=== PATIENT | male | born 1960 | race African-American/Black ===

== ENCOUNTER 2019-03-23 06:48 | Outpatient (CLI) | payer OTHER ==
--- NOTE | 2019-03-23 08:04 | ULT ---
Exam: Bilateral renal ultrasound complete: HISTORY: Urethral stricture, renal insufficiency COMPARISON: None FINDINGS: Right kidney: 10.1 x 4.8 x 5.0 cm Left kidney: 10.8 x 5.8 x 5.9 cm No renal hydronephrosis. No evidence for abnormal perinephric process. No solid or cystic renal mass. Unremarkable appearing bladder. IMPRESSION: Unremarkable bilateral renal ultrasound. No hydronephrosis or perinephric process.
== END 2019-03-23 06:49 | disposition home or self-care (01) ==
LOC: BICULT 06:48
PROVIDERS: ATTEND Urology
DX: N35.819 Other urethral stricture, male, unspecified site (principal); N28.9 Disorder of kidney and ureter, unspecified
CPT/HCPCS: 76770

== ENCOUNTER 2019-06-27 20:35 | Emergency (ER) | payer OTHER ==
--- NOTE | 2019-06-27 21:03 | RAD ---
EXAM: Right hand 3 views: HISTORY: Right hand swelling without known injury COMPARISON: 10/24/2004 FINDINGS: Multilevel arthrosis changes of the wrist and hand Degenerative changes. No acute fracture or dislocation or other significant acute osseous abnormality. IMPRESSION: No significant acute process.
[2019-06-27] MEDS ORDERED: Ketorolac Tromethamine 30 MG/ML VIAL ONE (21:19)
== END 2019-06-27 21:55 | disposition home or self-care (01) ==
LOC: ERS 20:35
DX: M25.531 Pain in right wrist (principal); I10 Essential (primary) hypertension
CPT/HCPCS: 96372; J1885

== ENCOUNTER 2019-11-05 18:04 | Emergency (ER) | payer OTHER ==
--- NOTE | 2019-11-05 18:34 | RAD ---
RIGHT HAND THREE VIEWS: 11/05/19 HISTORY: Right hand pain. FINDINGS/IMPRESSION: Comparison made with exam of 06/27/19. Degenerative changes are again seen. No acute fracture or disl ocation or bony destruction identified. POS: OFF
== END 2019-11-05 20:30 | disposition home or self-care (01) ==
LOC: ERS 18:04
DX: M10.9 Gout, unspecified (principal); I10 Essential (primary) hypertension
CPT/HCPCS: 36415; 84550

== ENCOUNTER 2020-03-15 16:45 | Emergency (ER) | payer OTHER ==
[2020-03-15] MEDS ORDERED: Ketorolac Tromethamine 30 MG/ML VIAL ONE (17:04)
--- NOTE | 2020-03-15 17:26 | RAD ---
Exam:3 views right shoulder. HISTORY: Hurt shoulder at work. COMPARISON: None FINDINGS: Glenohumeral joint spaces preserved. Mild degenerative change in the acromioclavicular join t space. No fracture or dislocation. Visualized right lung and right ribs are intact. IMPRESSION: No fracture or dislocation.
== END 2020-03-15 17:54 | disposition home or self-care (01) ==
LOC: ERS 16:45
DX: S43.401A Unspecified sprain of right shoulder joint, initial encounter (principal); I10 Essential (primary) hypertension; Z79.899 Other long term (current) drug therapy; W23.0XXA Caught, crushed, jammed, or pinched between moving objects, initial encounter
CPT/HCPCS: 96372; J1885

== ENCOUNTER 2020-05-12 07:44 | Outpatient (CLI) | payer OTHER ==
--- NOTE | 2020-05-12 09:28 | MRI ---
MRI RIGHT SHOULDER PERFORMED WITHOUT CONTRAST ENHANCEMENT: Date: 05/12/2020 HISTORY: Right shoulder strain. FINDINGS: Moderate arthrosis of the AC joint. There is a full thickness partial width supraspinatus tendon tear. The full thickness component of th is tear is retracted by approximately 1.5 cm. There are still some thin anterior and posterior fibers of the supraspinatus tendon that are intact. Tear does appear to extend to involve a portion of the anterior fibers of the infraspinatus tendon. The AP dimension of this tear is estimated at approximat stefano 1.4 cm. The subscapularis muscle and tendon appear intact. There is motion artifact which degrades detail. Th e biceps tendon does appear to be in normal position within the bicipital groove. Bicipital labral complex and inferior glenohumeral ligamentous and labral complex appear intact. There is very mild atrophy of the supraspinatus muscle. IMPRESSION: Full thickness partial width supraspinatus tendon tear as discussed above. POS: EDILBERTO
== END 2020-05-12 07:45 | disposition home or self-care (01) ==
LOC: TBSIIMAG 07:44
PROVIDERS: ATTEND Family Medicine
DX: S46.911D Strain of unspecified muscle, fascia and tendon at shoulder and upper arm level, right arm, subsequent encounter (principal); M75.121 Complete rotator cuff tear or rupture of right shoulder, not specified as traumatic

== ENCOUNTER 2020-08-17 09:25 | Outpatient (CLI) | payer OTHER | END 2020-08-17 09:26 | disposition home or self-care (01) | LOC: CTENTCT 09:25 | PROVIDERS: ATTEND Specialist | DX: J32.8 Other chronic sinusitis (principal) | CPT/HCPCS: 70486 ==

== ENCOUNTER 2020-09-28 10:03 | Emergency (ER) | payer OTHER ==
[2020-09-28] MEDS ORDERED: Dexamethasone 10 MG/ML VIAL ONE (11:06)
== END 2020-09-28 11:45 | disposition home or self-care (01) ==
LOC: ERS 10:03
DX: M10.9 Gout, unspecified (principal); I10 Essential (primary) hypertension; Z79.899 Other long term (current) drug therapy
CPT/HCPCS: 96372; 99283; J1100

== ENCOUNTER 2020-11-16 08:09 | Day surgery (SDC) | payer OTHER ==
[2020-11-15 11:34] VITALS: BMI 35.6
[2020-11-16] MEDS ORDERED: Levofloxacin 500 mg/D5W 100 ml Premix Bag ONE (08:47)
[2020-11-16] MEDS ORDERED: Ondansetron PF 4 MG/2 ML Vial ONE (09:35)
[2020-11-16] MEDS ORDERED: Dexamethasone 20 MG/5 ML VIAL ONE (09:35)
[2020-11-16] MEDS ORDERED: ePHEDrine 50 MG/ML VIAL ONE (09:35)
[2020-11-16] MEDS ORDERED: Glycopyrrolate 0.2 MG/ML 5 ML SYRINGE ONE (09:35)
[2020-11-16] MEDS ORDERED: PROPOFOL 200 MG/20 ML VIAL ONE (09:35)
[2020-11-16] MEDS ORDERED: Lidocaine 1% PF 5 ML VIAL ONE (09:35)
[2020-11-16] MEDS ORDERED: Iothalamate Meglumine 60% 50 ML VIAL FS ONE (11:05)
[2020-11-16] MEDS ORDERED: Fentanyl 100 MCG/2 ML VIAL ONE ×2 (11:10→12:31)
[2020-11-16] MEDS ORDERED: Phenazopyridine HCl 100 MG TAB ONE (12:30)
[2020-11-16] MEDS ORDERED: Oxybutynin 5 MG TAB ONE (12:31)
--- NOTE | 2020-11-16 13:16 | OP ---
DATE OF PROCEDURE: 11/16/2020 PREOPERATIVE DIAGNOSES: 1. A 60-year-old male with history of urethral stricture. 2. Meatal stenosis. 3. urinary tract infection. 4. Hydrocele. POSTOPERATIVE DIAGNOSES: 1. A 60-year-old male with history of urethral stricture. 2. Meatal stenosis. 3. urinary tract infection. 4. Hydrocele. PROCEDURES PERFORMED: Meatal calibration dilatation, retrograde urethrogram, cystoscopy, direct vision internal urethrotomy, 18-Malian 10 mL indwelling Chiang catheter, Alturas tip over guidewire. ANESTHESIA: LMA. COMPLICATIONS: None apparent. SPECIMEN: None. INTRAOPERATIVE FINDINGS: 1. Meatal calibration 12-Malian dilated to 26-Malian. 2. Retrograde urethrogram: Demonstrating two discrete areas of proximal penile urethral stricture. 3. Cystoscopy demonstrating proximal penile bulbar urethral stricture caliber about 15 to 16-Malian caliber. 4. Coapting lateral lobes of the prostate, no significant obstructing component from BPH 5. Bladder grossly unremarkable. INDICATIONS FOR THE PROCEDURE AND HISTORY: Mazin is a 60-year-old male with history of urethral stricture, had undergone DVIU in the past. He presented to my office as he had Enterococcus UTI symptomatic. This has been treated and resolved. He was advised regarding restaging cystoscopy, which he had significant anxiety. Therefore, exam under anesthesia advised. I had previously informed him that urethroplasty would be ideal, given his prior history of DVIU, however, continues to decline more definitive treatment. Therefore, restaging retrograde urethrogram, staging cystoscopy advised as he presents with symptomatic Enterococcus UTI. He has had no significant PVR of concern. Risks and complications of procedures have been discussed with him in detail including, but not limited to bleeding, pain, infection, injury to adjacent organs, ureteral injury, he has been fully informed regarding my recommendations of urethroplasty is more definitive treatment, however, declines. All questions answered to his satisfaction and desired to proceed. DESCRIPTION OF PROCEDURE: After an informed consent was signed, the patient was taken to the operating room, placed in a dorsal lithotomy position with the genital area prepped and draped in the usual surgical sterile fashion. A retrograde urethrogram was performed first. Upon the patient placed in a lateral modified position for a rug, his meatus was tight and it appeared to be about 12-Malian caliber and therefore we used a 12-Malian caliber catheter to perform a rugged retrograde urethrogram, which demonstrated two areas of narrowing in the proximal penile urethra. The bladder was easily opacified. The patient was subsequently placed in dorsal lithotomy position. A 17-Malian cystoscope was utilized first. Using Barbie sounds, I calibrated his meatus to about 12-Malian dilated to 26-Malian with ease. Subsequently, a 17-Malian scope was passed with ease. Staging of the urethra demonstrated consistent with a proximal penile urethral stricture. Although the lumen appeared to be not significantly obstructing, there was difficulty passing the 17-Malian scope atraumatically. Therefore, a 0.035 Superstiff wire was placed to the level of the bladder. As a 17-Malian scope would not accommodate a wire, we switched to a 20-Malian scope. With the wire within the bladder, we gently passed the scope to the level of the bladder, passively dilating any stricture. He had coapting lateral lobes of the prostate, however, not significantly obstructing. Bladder was grossly unremarkable. He has no median lobe of concern. At this time with the wire in situ, we re-staged his stricture with a 22-Malian scope. With passage of the scope gently, there was some persistent annular narrowing. Therefore, we performed a direct vision internal urethrotomy, releasing the annular ring. This was very soft in nature. An 18-Malian Alturas tip Chiang catheter was passed over the guidewire and 10 mL insufflated. The wire was then subsequently removed. The catheter attached to leg bag gravity bag. The patient will follow up with me next week for a voiding trial. Antibiotics sent to the patient's pharmacy. Incidentally noted on preop, he did have worsening renal insufficiency. We will perform upper tract imaging with renal ultrasound. 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 Job ID: [id number] [facility]
[2020-11-16] MEDS ORDERED: HYDROcodone/Acetaminophen 5/325 mg Tablet ONE (13:21)
--- NOTE | 2020-11-16 13:26 | RAD ---
Exam: Intraprocedure fluoroscopy for retrograde IVP FINDINGS: 2 fluoroscopic images demonstrate contrast opacifying the urethra. There is a persistent fi lling defect. Contrast does reflux into the bladder. IMPRESSION: Fluoroscopy as above
== END 2020-11-16 13:50 | disposition home or self-care (01) ==
LOC: SDC 08:09
PROVIDERS: ATTEND Urology
PROC: 0TND8ZZ Release Urethra, Via Natural or Artificial Opening Endoscopic (ICD-10-PCS; principal; 2020-11-16)
DX: N35.811 Other urethral stricture, male, meatal (principal); N39.0 Urinary tract infection, site not specified; N40.1 Benign prostatic hyperplasia with lower urinary tract symptoms; R35.0 Frequency of micturition; N43.3 Hydrocele, unspecified; N52.9 Male erectile dysfunction, unspecified; I10 Essential (primary) hypertension; K21.9 Gastro-esophageal reflux disease without esophagitis; M1A.9XX0 Chronic gout, unspecified, without tophus (tophi); Z79.899 Other long term (current) drug therapy
CPT/HCPCS: 74420; J1100; J1956; J2405; J2704; J3010; J3490

== ENCOUNTER 2024-07-26 20:45 | Inpatient (IN) | payer BC, MEDICARE ==
[~2024-07-26 20:45] MED LIST: Iopamidol-370 76% 500 ML MDV (1 ML CHARGE) ONE
[2024-07-26 21:44] LABS: #Basophils Less than 0.03 10x3/uL (0.0-0.2); %Basophils 0.4 % (0.0-1.0); %Eosinophils 0.9 % (0.0-10.0); %Lymphocytes 20.4 % (21.0-51.0); %Monocytes 11.3 % (0.0-10.0); %Neutrophils 66.6 % (42.0-75.0); Hemoglobin 14.7 g/dL (14.0-18.0); Mean Corpuscular HGB CONC 32.7 g/dL (32.0-36.0); Mean Corpuscular Hemoglobin 29.5 pg (27.0-31.0); Mean Corpuscular Volume 90.4 fL (78.0-98.0); Platelet Count 174 10x3/uL (130-400); RBC Distribution Width 13.2 % (11.5-14.5); Red Blood Cell (RBC) Count 4.98 mill/uL (4.70-6.10)
[2024-07-26 21:59] LABS: PTT 30.6 sec (22.9-36.1); Prothrombin Time 13.1 sec (12.0-14.7)
[2024-07-26 22:00] LABS: Acetaminophen Less than 10 mcg/mL (Less than 10); Alcohol Less than 10.0 mg/dL (Less than 10); Salicylate Less than 8.0 mg/dL (Less than 8.0)
[2024-07-26 22:01] LABS: ALT (SGPT) 20 U/L (8-55); AST (SGOT) 18 U/L (5-34); Albumin 3.8 g/dL (3.4-4.8); Alkaline Phosphatase 71 U/L (40-110); Anion Gap 12 mmol/L (10-20); BUN (Urea Nitrogen) 22 mg/dL (8.4-25.7); Bilirubin, Total 0.5 mg/dL (0.2-1.2); Calc. Creatinine Clearance 0 mL/min (70-130); Calcium 8.9 mg/dL (7.8-10.44); Carbon Dioxide 20 mmol/L (23-31); Chloride 108 mmol/L (98-107); Estimated GFR 64; Globulin 3.4 g/dL (2.4-3.5); Glucose 105 mg/dL (80-115); Potassium 4.3 mmol/L (3.5-5.1); Protein, Total 7.2 g/dL (5.8-8.1); Sodium 136 mmol/L (136-145)
[2024-07-26] MEDS ORDERED: Aspirin Chewable 81 MG TAB ONE (23:17)
[2024-07-27 01:44] VITALS: BMI 34.5
[2024-07-27 06:16] LABS: Cardiac Risk 4.4 (Less than 4.5)
[2024-07-27] MEDS ORDERED: Non-Formulary Item 1 EACH (Tadalafil [Tadalafil] 10 MG Tablet) PO PRN (18:31)
[2024-07-27 18:38] LABS: Hemoglobin A1c 6.5 % (4.0-6.0)
[2024-07-27] MEDS ORDERED: hydrALAZINE 20 MG/ML VIAL IM PRN (18:39)
[2024-07-27] MEDS ORDERED: Dextrose 50% Abboject 50 ML SYRINGE SLOW IVP PRN (18:43)
[2024-07-27] MEDS ORDERED: Glucagon 1 MG/ML KIT IM PRN (18:43)
[2024-07-27] MEDS ORDERED: Insulin Regular, Human 100 UNIT/ML 10 ML VIAL SC PRN (18:43)
[2024-07-27] MEDS ORDERED: Dextrose 5% in Water 1,000 ML IV PRN (18:43)
[2024-07-27 19:23] LABS: Hematocrit 42.1 % (42.0-52.0); Mean Corpuscular HGB CONC 35.6 g/dL (32.0-36.0); Mean Corpuscular Hemoglobin 29.6 pg (27.0-31.0); Mean Corpuscular Volume 83.2 fL (78.0-98.0); Mean Platelet Volume 10.6 fL (7.4-10.4); Platelet Count 188 10x3/uL (130-400); RBC Distribution Width 13.1 % (11.5-14.5); Red Blood Cell (RBC) Count 5.06 mill/uL (4.70-6.10)
[2024-07-27] MEDS: Atorvastatin Calcium 40 MG TAB PO SCH (20:34)
[2024-07-28 04:50] LABS: Anion Gap 11 mmol/L (10-20); BUN (Urea Nitrogen) 17 mg/dL (8.4-25.7); Calc. Creatinine Clearance 86 mL/min (70-130); Carbon Dioxide 24 mmol/L (23-31); Chloride 105 mmol/L (98-107); Estimated GFR 57; Glucose 128 mg/dL (80-115); Potassium 3.9 mmol/L (3.5-5.1); Sodium 136 mmol/L (136-145)
[2024-07-28] MEDS ORDERED: Lisinopril 20 MG TAB PO SCH (09:00)
[2024-07-28] MEDS ORDERED: Amlodipine 5 MG TAB PO SCH (09:00)
[2024-07-28] MEDS: Acetaminophen 325 MG TAB PO PRN (09:24)
[2024-07-28] MEDS: Pantoprazole DR 40 MG TAB PO SCH (09:25)
[2024-07-28] MEDS: Aspirin 81 mg Enteric Coated Tablet PO SCH (09:25)
[2024-07-28] MEDS: Enoxaparin 40 MG (0.4 mL) SYRINGE SC SCH (09:25)
[2024-07-28 19:52] LABS: Hematocrit 48.5 % (42.0-52.0); Hemoglobin 16.4 g/dL (14.0-18.0); Mean Corpuscular HGB CONC 33.8 g/dL (32.0-36.0); Mean Corpuscular Hemoglobin 29.5 pg (27.0-31.0); Mean Corpuscular Volume 87.4 fL (78.0-98.0); Mean Platelet Volume 11.5 fL (7.4-10.4); Platelet Count 217 10x3/uL (130-400); RBC Distribution Width 13.2 % (11.5-14.5); Red Blood Cell (RBC) Count 5.55 mill/uL (4.70-6.10)
[2024-07-29 04:47] LABS: Anion Gap 13 mmol/L (10-20); BUN (Urea Nitrogen) 19 mg/dL (8.4-25.7); Calc. Creatinine Clearance 85 mL/min (70-130); Calcium 8.7 mg/dL (7.8-10.44); Carbon Dioxide 22 mmol/L (23-31); Chloride 106 mmol/L (98-107); Estimated GFR 57; Glucose 115 mg/dL (80-115); Sodium 137 mmol/L (136-145)
[2024-07-29] MEDS: Amlodipine 5 MG TAB PO SCH (10:21)
[2024-07-29] MEDS: Lisinopril 20 MG TAB PO SCH (10:23)
[2024-07-29] MEDS ORDERED: Dextrose 5% in Water 1,000 ML IV PRN (18:33)
[2024-07-29] MEDS ORDERED: Glucagon 1 MG/ML KIT IM PRN (18:33)
[2024-07-29] MEDS ORDERED: Dextrose 50% Abboject 50 ML SYRINGE SLOW IVP PRN (18:33)
[2024-07-29 19:17] LABS: Hemoglobin 16.1 g/dL (14.0-18.0); Mean Corpuscular HGB CONC 33.5 g/dL (32.0-36.0); Mean Corpuscular Hemoglobin 29.7 pg (27.0-31.0); Mean Corpuscular Volume 88.4 fL (78.0-98.0); Mean Platelet Volume 9.8 fL (7.4-10.4); Platelet Count 168 10x3/uL (130-400); RBC Distribution Width 13.1 % (11.5-14.5); Red Blood Cell (RBC) Count 5.43 mill/uL (4.70-6.10)
[2024-07-29] MEDS ORDERED: Docusate 100 MG CAP PO PRN (19:48)
[2024-07-29] MEDS: Polyethylene Glycol 3350 17 GM Packet PO PRN (20:14)
[2024-07-30 05:28] LABS: Anion Gap 14 mmol/L (10-20); BUN (Urea Nitrogen) 20 mg/dL (8.4-25.7); Calc. Creatinine Clearance 83 mL/min (70-130); Calcium 8.7 mg/dL (7.8-10.44); Carbon Dioxide 21 mmol/L (23-31); Chloride 106 mmol/L (98-107); Estimated GFR 55; Glucose 113 mg/dL (80-115); Potassium 4.5 mmol/L (3.5-5.1); Sodium 136 mmol/L (136-145)
[2024-07-30] MEDS ORDERED: Iopamidol-370 76% 500 ML MDV (1 ML CHARGE) ONE (11:49)
[2024-07-30 11:56] LABS: #Basophils 0.03 10x3/uL (0.0-0.2); %Basophils 0.4 % (0.0-1.0); %Eosinophils 1.5 % (0.0-10.0); %Monocytes 13.6 % (0.0-10.0); %Neutrophils 46.1 % (42.0-75.0); Hematocrit 50.2 % (42.0-52.0); Hemoglobin 16.9 g/dL (14.0-18.0); Mean Corpuscular HGB CONC 33.7 g/dL (32.0-36.0); Mean Corpuscular Hemoglobin 29.4 pg (27.0-31.0); Mean Corpuscular Volume 87.3 fL (78.0-98.0); Mean Platelet Volume 10.3 fL (7.4-10.4); Platelet Count 189 10x3/uL (130-400); RBC Distribution Width 13.1 % (11.5-14.5); Red Blood Cell (RBC) Count 5.75 mill/uL (4.70-6.10)
[2024-07-30 12:38] LABS: ALT (SGPT) 27 U/L (8-55); AST (SGOT) 29 U/L (5-34); Albumin 3.8 g/dL (3.4-4.8); Alkaline Phosphatase 79 U/L (40-110); Anion Gap 14 mmol/L (10-20); BUN (Urea Nitrogen) 19 mg/dL (8.4-25.7); Bilirubin, Total 0.8 mg/dL (0.2-1.2); Calc. Creatinine Clearance 85 mL/min (70-130); Calcium 9.2 mg/dL (7.8-10.44); Carbon Dioxide 16 mmol/L (23-31); Chloride 108 mmol/L (98-107); Estimated GFR 57; Globulin 4.2 g/dL (2.4-3.5); Glucose 144 mg/dL (80-115); Sodium 133 mmol/L (136-145)
[2024-07-30 12:42] LABS: Troponin I Less than 0.010 ng/mL (< 0.028)
[2024-07-31] MEDS: Morphine 2 MG/ML VIAL SLOW IVP SCH (03:37)
[2024-07-31] MEDS: Sodium Chloride 0.9% 1,000 ML IV SCH (05:04)
[2024-07-31] MEDS: Aspirin 300 MG Suppository PR SCH (07:57)
[2024-07-31] MEDS: traMADol HCl 50 MG TAB PO PRN (12:25)
[2024-07-31] MEDS ORDERED: Lidocaine 1% PF 5 ML VIAL ONE (16:45)
[2024-07-31] MEDS ORDERED: PROPOFOL 200 MG/20 ML VIAL ONE (16:45)
[2024-07-31 16:49] LABS: Band 2 % (5-11); Burr Cells SLIGHT = 2-5 cells HPF (0-1); Eosinophils 4 % (0-10); Large Platelets 1.6 % (0-5); Lymphocytes 31 % (21-51); Monocytes 18 % (0-10); Neutrophil 43 % (42-75); Platelet Adequacy Comment Platelets Normal; Poikilocytosis SLIGHT = 6-15 cells HPF (0-5); Polychromasia SLIGHT = 2-3 cells HPF (0-2); Reactive Lymphocytes 2 % (0-10); Smudge Cells 16.1 %
[2024-08-01 04:26] LABS: #Basophils Less than 0.03 10x3/uL (0.0-0.2); #Eosinophils Less than 0.03 10x3/uL (0.0-0.7); %Basophils 0.3 % (0.0-1.0); %Eosinophils 0.3 % (0.0-10.0); %Lymphocytes 11.8 % (21.0-51.0); %Monocytes 10.6 % (0.0-10.0); %Neutrophils 76.7 % (42.0-75.0); Hematocrit 43.3 % (42.0-52.0); Hemoglobin 14.9 g/dL (14.0-18.0); Mean Corpuscular HGB CONC 34.4 g/dL (32.0-36.0); Mean Corpuscular Hemoglobin 29.2 pg (27.0-31.0); Mean Corpuscular Volume 84.7 fL (78.0-98.0); Mean Platelet Volume 10.2 fL (7.4-10.4); Platelet Count 195 10x3/uL (130-400); RBC Distribution Width 12.7 % (11.5-14.5); Red Blood Cell (RBC) Count 5.11 mill/uL (4.70-6.10)
[2024-08-01 05:06] LABS: Anion Gap 13 mmol/L (10-20); BUN (Urea Nitrogen) 19 mg/dL (8.4-25.7); Calc. Creatinine Clearance 91 mL/min (70-130); Calcium 8.7 mg/dL (7.8-10.44); Carbon Dioxide 17 mmol/L (23-31); Chloride 109 mmol/L (98-107); Estimated GFR 66; Glucose 165 mg/dL (80-115); Potassium 4.5 mmol/L (3.5-5.1); Sodium 134 mmol/L (136-145)
[2024-08-01] MEDS: Colchicine 0.6 MG TAB PO SCH (08:57)
[2024-08-01] MEDS: Clopidogrel Bisulfate 75 MG TAB PO SCH (08:57)
[2024-08-01] MEDS: Ketorolac Tromethamine 30 MG (1 mL) VIAL IVP SCH (13:05)
[2024-08-01] MEDS: Aspirin 81 mg Enteric Coated Tablet PO SCH (13:11)
[2024-08-01] MEDS: Aspirin 325 mg Enteric Coated Tablet PO SCH (13:12)
[2024-08-01] MEDS: Insulin Regular, Human 100 UNIT/ML 10 ML VIAL SC PRN (13:24)
[2024-08-01 18:54] VITALS: BMI 32.4
[2024-08-01] MEDS: HYDROcodone/Acetaminophen 5/325 mg Tablet PO PRN (20:18)
[2024-08-02] MEDS: Aspirin 81 mg Enteric Coated Tablet PO SCH (08:38)
[2024-08-02] MEDS ORDERED: Aspirin 325 mg Enteric Coated Tablet PO SCH (09:00)
[2024-08-02 12:22] VITALS: TEMP 98.6
[2024-08-02 17:10] VITALS: BP 133/74
== END 2024-08-02 19:49 | DRG 65 ==
LOC: ERS 20:45 → EEVIPCON 20:45 → OBS 23:35 → IMCU/EMU 07-30 17:25 → 2SE 07-31 17:51
PROVIDERS: ADMIT Internal Medicine; ATTEND Internal Medicine
PROC: 4A00X4Z Measurement of Central Nervous Electrical Activity, External Approach (ICD-10-PCS; principal; 2024-07-30)
PROC: B24BZZ4 Ultrasonography of Heart with Aorta, Transesophageal (ICD-10-PCS; 2024-07-31)
DX: I63.89 Other cerebral infarction (principal); E87.1 Hypo-osmolality and hyponatremia; G81.94 Hemiplegia, unspecified affecting left nondominant side; E87.20 Acidosis, unspecified; N17.9 Acute kidney failure, unspecified; E78.5 Hyperlipidemia, unspecified; I10 Essential (primary) hypertension; M10.9 Gout, unspecified; Z96.652 Presence of left artificial knee joint; I63.81 Other cerebral infarction due to occlusion or stenosis of small artery; R59.0 Localized enlarged lymph nodes; E11.9 Type 2 diabetes mellitus without complications; R29.700 NIHSS score 0; R47.1 Dysarthria and anarthria; K21.9 Gastro-esophageal reflux disease without esophagitis; R47.01 Aphasia; Z90.49 Acquired absence of other specified parts of digestive tract; Z79.899 Other long term (current) drug therapy; Z79.84 Long term (current) use of oral hypoglycemic drugs
CPT/HCPCS: 36415; 36416; 70450; 70496; 70498; 70551; 71045; 71275; 80048; 80053; 80061; 80307; 82140; 82164; 83036; 83615; 84443; 84484; 84550; 85025; 85027; 85610; 85730; 86141; 93005; 93306; 93312; 94760; 95816; J1650; J1815; J1885; J2272; J2704; J7030; Q9967

== ENCOUNTER 2024-08-24 11:49 | Outpatient (CLI) | payer BC, MEDICARE | END 2024-08-24 11:50 | disposition home or self-care (01) | LOC: BICRAD 11:49 | PROVIDERS: ATTEND Student in an Organized Health Care Education/Training Program | DX: M25.511 Pain in right shoulder (principal); M19.011 Primary osteoarthritis, right shoulder ==

== ENCOUNTER 2024-10-22 06:10 | Day surgery (SDC) | payer BC, MEDICARE ==
[2024-10-21 13:59] VITALS: BMI 33.3
[2024-10-21 15:07] LABS: #Basophils Less than 0.03 10x3/uL (0.0-0.2); %Basophils 0.2 % (0.0-1.0); %Eosinophils 1.8 % (0.0-10.0); %Lymphocytes 26.2 % (21.0-51.0); %Monocytes 11.5 % (0.0-10.0); %Neutrophils 59.9 % (42.0-75.0); Hematocrit 40.8 % (42.0-52.0); Hemoglobin 14.4 g/dL (14.0-18.0); Mean Corpuscular HGB CONC 35.3 g/dL (32.0-36.0); Mean Corpuscular Hemoglobin 29.8 pg (27.0-31.0); Mean Corpuscular Volume 84.3 fL (78.0-98.0); Mean Platelet Volume 10.2 fL (7.4-10.4); Platelet Count 166 10x3/uL (130-400); RBC Distribution Width 13.2 % (11.5-14.5); Red Blood Cell (RBC) Count 4.84 mill/uL (4.70-6.10)
[2024-10-21 15:24] LABS: PTT 33.2 sec (22.9-36.1); Prothrombin Time 13.4 sec (12.0-14.7)
[2024-10-21 15:26] LABS: ALT (SGPT) 35 U/L (Less than 45); AST (SGOT) 24 U/L (11-34); Albumin 3.8 g/dL (3.1-4.5); Alkaline Phosphatase 82 U/L (40-110); Anion Gap 14 mmol/L (10-20); BUN (Urea Nitrogen) 16 mg/dL (8.4-25.7); Bilirubin, Total 0.6 mg/dL (0.3-1.2); Calc. Creatinine Clearance 0 mL/min (70-130); Carbon Dioxide 22 mmol/L (23-31); Chloride 106 mmol/L (98-107); Estimated GFR 70; Globulin 3.7 g/dL (2.4-3.5); Glucose 180 mg/dL (80-115); Potassium 4.1 mmol/L (3.5-5.1); Protein, Total 7.5 g/dL (5.8-8.1); Sodium 138 mmol/L (136-145)
[2024-10-22] MEDS ORDERED: Lidocaine 1% MPF 2 ML VIAL ONE (06:19)
[2024-10-22] MEDS ORDERED: CEFAZOLIN 2 GM VIAL ONE (06:20)
[2024-10-22] MEDS ORDERED: EPINEPHrine 1 MG/ML VIAL ONE (06:23)
[2024-10-22] MEDS ORDERED: Bupivacaine 0.25% HCL 30 ML VIAL ONE (06:23)
[2024-10-22] MEDS ORDERED: PROPOFOL 20 ML ONE (06:25)
[2024-10-22] MEDS ORDERED: SUGAMMADEX SODIUM 200 MG/2 ML VIAL ONE (06:25)
[2024-10-22] MEDS ORDERED: fentaNYL PF 100 MCG/2 ML SYRINGE ONE ×2 (06:25→07:44)
[2024-10-22] MEDS ORDERED: Midazolam HCl 2 mg/2 ml Vial ONE (06:25)
[2024-10-22] MEDS ORDERED: Rocuronium Bromide 10 MG/ML (10ML VIAL) ONE (06:26)
[2024-10-22] MEDS ORDERED: Ondansetron PF 4 MG/2 ML Vial ONE (06:26)
[2024-10-22] MEDS ORDERED: Lidocaine 1% PF 5 ML VIAL ONE (06:26)
[2024-10-22] MEDS ORDERED: Dexamethasone 4 mg/ml Vial ONE (06:29)
[2024-10-22] MEDS ORDERED: Phenylephrine 10 MG/ML VIAL ONE ×2 (06:56→07:43)
[2024-10-22] MEDS ORDERED: Glycopyrrolate 0.2 MG/ML 5 ML SYRINGE ONE (08:06)
[2024-10-22] MEDS ORDERED: fentaNYL 50 mcg/mL 1 mL Vial ONE (10:47)
[2024-10-22] MEDS ORDERED: HYDROcodone/Acetaminophen 5/325 mg Tablet ONE (11:52)
== END 2024-10-22 12:10 | disposition home or self-care (01) ==
LOC: SDC 06:10
PROVIDERS: ATTEND Student in an Organized Health Care Education/Training Program
PROC: 07B74ZX Excision of Thorax Lymphatic, Percutaneous Endoscopic Approach, Diagnostic (ICD-10-PCS; principal; 2024-10-22)
DX: I88.9 Nonspecific lymphadenitis, unspecified (principal); I10 Essential (primary) hypertension; E11.9 Type 2 diabetes mellitus without complications; E78.2 Mixed hyperlipidemia; E66.3 Overweight; K21.9 Gastro-esophageal reflux disease without esophagitis; G47.30 Sleep apnea, unspecified; M10.9 Gout, unspecified; M19.90 Unspecified osteoarthritis, unspecified site; Z68.32 Body mass index [BMI] 32.0-32.9, adult; Z96.652 Presence of left artificial knee joint; Z86.73 Personal history of transient ischemic attack (TIA), and cerebral infarction without residual deficits; Z90.49 Acquired absence of other specified parts of digestive tract; Z79.02 Long term (current) use of antithrombotics/antiplatelets; Z79.899 Other long term (current) drug therapy
CPT/HCPCS: 36416; 71045; 80053; 85025; 85610; 85730; 86850; 86900; 86901; 88305; 88312; 88341; 88342; J0171; J0665; J1100; J2250; J2371; J2405; J2704; J3010

== ENCOUNTER 2024-11-09 13:40 | Outpatient (CLI) | payer BC, MEDICARE | END 2024-11-09 13:41 | disposition home or self-care (01) | LOC: RAD 13:40 | PROVIDERS: ATTEND Student in an Organized Health Care Education/Training Program | DX: R59.0 Localized enlarged lymph nodes (principal) | CPT/HCPCS: 71046 ==

== ENCOUNTER 2025-06-30 11:14 | Outpatient (CLI) | payer MEDICARE ==
[2025-06-30 12:47] LABS: #Basophils Less than 0.03 10x3/uL (0.0-0.2); #Eosinophils 0.07 10x3/uL (0.0-0.7); #Monocytes 0.56 10x3/uL (0.11-0.59); #Neutrophils 3.33 10x3/uL (1.40-6.50); %Basophils 0.3 % (0.0-1.0); %Eosinophils 1.2 % (0.0-10.0); %Lymphocytes 30.1 % (21.0-51.0); %Monocytes 9.8 % (0.0-10.0); %Neutrophils 58.3 % (42.0-75.0); Hematocrit 42.6 % (42.0-52.0); Hemoglobin 14.4 g/dL (14.0-18.0); Mean Corpuscular Hemoglobin 28.8 pg (27.0-31.0); Mean Corpuscular Volume 85.2 fL (78.0-98.0); Platelet Count 185 10x3/uL (130-400); Red Blood Cell (RBC) Count 5.00 mill/uL (4.70-6.10); White Blood Cell (WBC) Count 5.72 10x3/uL (4.8-10.8)
[2025-06-30 13:01] LABS: INR-International Normal Ratio 1.1; PTT 33.8 sec (22.9-36.1); Prothrombin Time 14.0 sec (12.0-14.7)
[2025-06-30 13:03] LABS: Anion Gap 7 mmol/L (10-20); BUN (Urea Nitrogen) 18 mg/dL (8.4-25.7); Calc. Creatinine Clearance 0 mL/min (70-130); Calcium 9.0 mg/dL (7.8-10.44); Carbon Dioxide 25 mmol/L (23-31); Chloride 108 mmol/L (98-107); Glucose 127 mg/dL (80-115); Potassium 4.1 mmol/L (3.5-5.1); Sodium 136 mmol/L (136-145)
[2025-06-30 13:30] LABS: Bacteria/HPF None Seen HPF (None Seen); Glucose, Urine (Dipstick) Normal (Negative); Leukocyte Negative Leu/uL (Negative); Protein, Urine (Dipstick) Negative (Neg-Trace); RBC/HPF 0-3 HPF (0-3); Specific Gravity, Urine 1.018 (1.002-1.036); WBC/HPF 0-3 HPF (0-3)
== END 2025-06-30 11:15 | disposition home or self-care (01) ==
LOC: LABBT 11:14
PROVIDERS: ATTEND Urology
DX: Z01.818 Encounter for other preprocedural examination (principal); Z12.5 Encounter for screening for malignant neoplasm of prostate; N40.0 Benign prostatic hyperplasia without lower urinary tract symptoms; N52.9 Male erectile dysfunction, unspecified; N28.9 Disorder of kidney and ureter, unspecified; N43.3 Hydrocele, unspecified; N30.00 Acute cystitis without hematuria; I63.89 Other cerebral infarction; N35.819 Other urethral stricture, male, unspecified site
CPT/HCPCS: 80048; 81001; 85025; 85610; 85730; 87086; 93005; 93010

== ENCOUNTER 2025-07-14 07:30 | Day surgery (SDC) | payer MEDICARE ==
[2025-06-30 12:01] VITALS: BMI 33.5
[2025-07-14] MEDS ORDERED: fentaNYL PF 100 MCG/2 ML SYRINGE ONE (09:40)
[2025-07-14] MEDS ORDERED: Lidocaine 1% PF 5 ML VIAL ONE (09:42)
[2025-07-14] MEDS ORDERED: LevoFLOXacin D5W 500 mg (100 mL) BAG ONE (09:59)
[2025-07-14] MEDS ORDERED: Famotidine/PF 20 mg/2ml Vial ONE (10:22)
[2025-07-14] MEDS ORDERED: Glycopyrrolate 0.2 MG/ML 5 ML SYRINGE ONE (10:29)
[2025-07-14] MEDS ORDERED: PROPOFOL 200 MG/20 ML VIAL ONE (10:29)
[2025-07-14] MEDS ORDERED: PHENYLEPHRINE-NS 100 MCG/ML 10 ML SYRINGE ONE (10:44)
[2025-07-14] MEDS ORDERED: Ondansetron PF 4 MG/2 ML Vial ONE (10:53)
[2025-07-14] MEDS ORDERED: Oxybutynin 5 MG TAB ONE (12:19)
== END 2025-07-14 13:35 | disposition home or self-care (01) ==
LOC: SDC 07:30
PROVIDERS: ATTEND Urology
PROC: 0T7D8ZZ Dilation of Urethra, Via Natural or Artificial Opening Endoscopic (ICD-10-PCS; principal; 2025-07-14)
DX: N35.819 Other urethral stricture, male, unspecified site (principal); I10 Essential (primary) hypertension; E11.9 Type 2 diabetes mellitus without complications; E78.2 Mixed hyperlipidemia; K21.9 Gastro-esophageal reflux disease without esophagitis; N52.9 Male erectile dysfunction, unspecified; N40.1 Benign prostatic hyperplasia with lower urinary tract symptoms; R35.0 Frequency of micturition; N28.9 Disorder of kidney and ureter, unspecified; N43.3 Hydrocele, unspecified; M1A.9XX0 Chronic gout, unspecified, without tophus (tophi); I63.89 Other cerebral infarction; R59.0 Localized enlarged lymph nodes; Z96.659 Presence of unspecified artificial knee joint; Z90.49 Acquired absence of other specified parts of digestive tract; Z79.899 Other long term (current) drug therapy
CPT/HCPCS: 52276; J1100; J1308; J1956; J2250; J2405; J2704